=== PATIENT | female | born 1995 | race Caucasian/White ===

== ENCOUNTER → 2021-07-09 | Outpatient (CLI) | payer OTHER ==
--- NOTE | 2021-07-10 22:11 | REPVR ---
PROCEDURE INFORMATION: Exam: MR Lumbar Spine Without Contrast Exam date and time: 07/09/2021 5:48 PM Age: 25 years old Clinical indication: Low back pain; Additional info: Disc like symtpoms TECHNIQUE: Imaging protocol: Multiplanar magnetic resonance images of the lumbar spine without intravenous contrast. COMPARISON: No relevant prior studies available. FINDINGS: Vertebrae: Normal vertebral body alignment. Mild reactive endplate edema at L4-L5. Normal alignment. Otherwise normal marrow signal. Spinal epidural space: Mild epidural lipomatosis from L3 extending into the sacral spinal canal. Spinal cord: Conus medullaris terminates in normal position at L1. No conus compression. L1-L2: No disc herniation or spinal stenosis. No significant foraminal stenosis. L2-L3: No disc herniation or spinal stenosis. No significant foraminal stenosis. L3-L4: No disc herniation or spinal stenosis. No significant foraminal stenosis. L4-L5: Disc degeneration with mild loss of disc height and 12 x 7 mm midline posterior disc protrusion. Mild lateral recess stenosis with mild mass effect on the L5 nerve roots, greater on the left. Mild central spinal stenosis. No significant foraminal stenosis. L5-S1: Disc degeneration with mild disc desiccation and 5 mm midline posterior disc protrusion. No spinal stenosis. Mild foraminal stenosis. Soft tissues: Unremarkable. IMPRESSION: 1. Disc degeneration with posterior disc protrusion causing left greater than right lateral recess stenosis at L4-L5. 2. Mild disc degeneration with small midline posterior disc protrusion at L5-S1. Mild foraminal stenosis. 3. Mild epidural lipomatosis. Electronically signed by: Miguel Sneed On 07/10/2021 22:10:56 PM
== END ==
LOC: M RAD 16:58
PROVIDERS: ATTEND Chiropractor
DX: M51.16 Intervertebral disc disorders with radiculopathy, lumbar region (principal); M99.03 Segmental and somatic dysfunction of lumbar region; E88.2 Lipomatosis, not elsewhere classified

== ENCOUNTER → 2023-10-16 | Outpatient (CLI) | payer OTHER | LOC: M WHC 07:21 | PROVIDERS: ATTEND Nurse Practitioner Adult Health | DX: E28.2 Polycystic ovarian syndrome (principal); N88.8 Other specified noninflammatory disorders of cervix uteri ==

== ENCOUNTER → 2023-12-29 | Outpatient (REF) | payer OTHER | LOC: M SFHCWAGY 10:54 | PROVIDERS: ATTEND Nurse Practitioner Family | DX: Z12.4 Encounter for screening for malignant neoplasm of cervix (principal) | CPT/HCPCS: 87624; G0123 ==

== ENCOUNTER 2025-06-26 20:26 | Emergency (ER) | payer OTHER ==
[~2025-06-26] VITALS: Ht 167.6 cm; Wt 150.3 kg
[2025-06-26 20:29] VITALS: BP 171/97; TEMP 96.3; O2SAT 98
[2025-06-26] MEDS ORDERED: BUPR150T12 PO (20:34)
[2025-06-26] MEDS ORDERED: METF500T13 PO (20:34)
[2025-06-26] MEDS ORDERED: LAMO300T PO (20:34)
[2025-06-26] MEDS ORDERED: VRAY3CAP PO (20:34)
[2025-06-26] MEDS ORDERED: LITH300T2 PO (20:34)
== END 2025-06-26 22:22 | disposition home or self-care (01) ==
LOC: M ED 20:26
DX: S61.002A Unspecified open wound of left thumb without damage to nail, initial encounter (principal); X58.XXXA Exposure to other specified factors, initial encounter; Y92.009 Unspecified place in unspecified non-institutional (private) residence as the place of occurrence of the external cause; Y93.9 Activity, unspecified; Y99.9 Unspecified external cause status; Z91.030 Bee allergy status